=== PATIENT | female | born 1960 | race Caucasian/White ===

== ENCOUNTER 2020-05-17 05:42 | Emergency (ER) | payer OTHER ==
[~2020-05-17] VITALS: Ht 162.6 cm; Wt 72.6 kg
[2020-05-17] MEDS ORDERED: BACTRIM DS TAB1 EACH PO (05:51)
[2020-05-17 06:40] LABS: ABSOLUTE NEUTROPHILS 5.5 thou/uL (1.4-8.2); BASOPHILS 0.4 % (0.0-2.0); EOSINOPHILS 0.6 % (0.0-3.0); HEMATOCRIT 37.6 % (37.0-47.0); LYMPHOCYTES 25.9 % (24.0-44.0); MCH 29.5 pg (26.0-34.0); MCHC 34.7 g/dL (28.0-37.0); MCV 85.1 fL (80.0-100.0); MONOCYTES 7.3 % (1.0-8.0); PLATELET COUNT 279 thou/uL (150-400); POLYS 65.8 % (36.0-66.0); RBC 4.42 mil/uL (4.20-5.00); RDW 12.9 % (10.5-14.5); WBC 8.3 thou/uL (4.0-11.0)
[2020-05-17 06:41] LABS: CALCIUM 8.9 mg/dL (8.5-10.1); CREATININE 1.1 mg/dL (0.6-1.0)
[2020-05-17 06:43] LABS: URINE BILIRUBIN NEGATIVE (Negative); URINE BLOOD TRACE (Negative); URINE CLARITY CLEAR; URINE COLOR YELLOW; URINE GLUCOSE-RANDOM* NEGATIVE (Negative); URINE KETONES NEGATIVE (Negative); URINE NITRITE-REFLEX NEGATIVE (Negative); URINE PROTEIN (DIPSTICK) NEGATIVE (Negative); URINE SPECIFIC GRAVITY <= 1.005 (1.005-1.035); URINE UROBILINOGEN 0.2 E.U./dl (0.2-1.0)
[2020-05-17 06:45] LABS: URINE LEUKOCYTES-REFLEX 1+ (Negative)
[2020-05-17 06:46] LABS: ALBUMIN 3.7 g/dL (3.4-5.0); DIRECT BILIRUBIN 0.1 mg/dL (<0.1-0.2); TOTAL BILIRUBIN 0.2 mg/dL (0.2-1.0); TOTAL PROTEIN 7.7 g/dL (6.4-8.2)
[2020-05-17 06:55] LABS: CASTS None Seen /LPF (None Seen); SQUAMOUS 0-3 Few /LPF (0-3)
[2020-05-17 06:56] LABS: BACTERIA-REFLEX None Seen /HPF (None Seen); CRYSTALS None Seen /LPF (None Seen); URINE RBC None Seen /HPF (0-2); URINE WBC-REFLEX 0-5 Rare /HPF (0-5)
[2020-05-17 09:08] VITALS: BP 136/70
== END 2020-05-17 09:10 | disposition home or self-care (01) ==
LOC: ER 05:42
PROVIDERS: Emergency Medicine
DX: E86.0 Dehydration (principal)